=== PATIENT | female | born 1990 | race Two or more races ===

== ENCOUNTER 2018-07-15 22:40 | Inpatient (IN) | payer OTHER ==
[2018-07-15] MEDS ORDERED: NS 1,600 ML IV ONE (23:13)
[2018-07-15] MEDS ORDERED: HYDROmorphONE/DILAUDID 2 MG/ML INJ IVP ONE (23:14)
[2018-07-15] MEDS ORDERED: IBUPROFEN 200 MG TAB PO ONE (23:14)
[2018-07-15] MEDS ORDERED: ACETAMINOPHEN 500 MG TAB PO ONE (23:14)
--- NOTE | 2018-07-15 23:19 | EDPHY ---
H & P Stated Complaint: Received IM in R hip in [facility] 07/08/18 for viral illness c/o pain to r leg Time Seen by Provider: 07/15/18 23:02 HPI/ROS: HPI The patient presents with fever and right hip pain for the last 1 day. The patient was visiting [facility] at the beginning of the year and developed fever, sore throat, nausea, abdominal pain. She went to see a doctor and was diagnosed with a viral illness. She was given 2 injections on July 08, 1 in her hand and 1 in her right hip buttock region. Within 2 days she was feeling much better and had no fever. She has been feeling well over the last several days. She has had only a mild sore throat. She today developed pain at the right hip injection site. She had had no pain in the area until today. The pain became progressively worse throughout the day so that was painful to flex her hip or walk. She then developed a fever this afternoon and has come in to the emergency department. REVIEW OF SYSTEMS 10 systems were reviewed and negative with the exception of the elements mentioned in the history of present illness. PMHx: Mild iron deficiency anemia Soc Hx: Lives in [place], from [facility] originally, here on a working visa PHYSICAL General Appearance: Alert, no distress Eyes: Pupils equal and round no pallor or injection ENT, Mouth: Mucous membranes moist Respiratory: There are no retractions, lungs are clear to auscultation Cardiovascular: Tachycardic rate and regular rhythm Gastrointestinal: Abdomen is soft and non-tender, no masses, bowel sounds normal Neurological: A&O, moves all extremities Skin: Warm and dry, right buttock with small area of erythema with diffuse tenderness laterally Musculoskeletal: Limited range of motion of right hip secondary to pain Extremities: symmetrical, full range of motion Psychiatric: Patient is oriented X 3, there is no agitation Source: Patient Exam Limitations: No limitations - Personal History LMP (Females 10-55): 8-14 Days Ago Current Tetanus Diphtheria and Acellular Pertussis (TDAP): Unsure - Medical/Surgical History Hx Asthma: No Hx Chronic Respiratory Disease: No Hx Diabetes: No Hx Cardiac Disease: No Hx Renal Disease: No Hx Cirrhosis: No Hx Alcoholism: No Hx HIV/AIDS: No Hx Splenectomy or Spleen Trauma: No Other PMH: Denies - Social History Smoking Status: Never smoked Constitutional: Initial Vital Signs Temperature (C) 37.9 C 07/15/18 22:46 Heart Rate 135 H 07/15/18 22:46 Respiratory Rate 18 07/15/18 22:46 Blood Pressure 137/96 H 07/15/18 22:46 O2 Sat (%) 97 07/15/18 22:46 O2 Delivery Mode Room Air Allergies/Adverse Reactions: No Known Allergies Allergy (Unverified 07/15/18 22:44) Home Medications: Medication Instructions Recorded Biotin 07/15/18 Iron 07/15/18 Medical Decision Making - Diagnostics Imaging: Discussed imaging studies w/ call center associate Radiologist, I viewed and interpreted images myself Differential Diagnosis: This is a 27-year-old healthy female who presents with fever and right hip pain for the last 1 day, status post IM injection of some sort of medication into her right buttock/hip 1 week ago for some sort of viral syndrome which presented with fever on sore throat, nausea while in [place]. Here, she is febrile, tachycardic, very tender over her right buttock and hip with small area of erythema. She has limited range of motion of her hip because of pain. Differential diagnosis includes myositis, abscess, cellulitis, septic hip. In the emergency department, patient received IV fluids, antipyretics, medication for pain. She had a leukocytosis. Other labs were normal including lactate and CK. Blood cultures were performed and she was given antibiotics. With IV fluids patient's heart rate remains slightly elevated in the 100s. CT scan of her pelvis was performed which did demonstrate cellulitis which is likely related to the injection site. I consulted with Dr. Mathis for admission to the hospitalist service and he saw the patient in the emergency department. - Data Points Laboratory Results: Laboratory Results 07/15/18 23:25 07/15/18 23:25 07/16/18 07/15/18 07/15/18 00:56 23:35 23:25 WBC RBC Hgb Hct MCV MCH MCHC RDW Plt Count MPV Neut % (Auto) Lymph % (Auto) Green % (Auto) Eos % (Auto) Baso % (Auto) Nucleat RBC Rel Count Absolute Neuts (auto) Absolute Lymphs (auto) Absolute Monos (auto) Absolute Eos (auto) Absolute Basos (auto) Absolute Nucleated RBC Immature Gran % Immature Gran # VBG Lactic Acid Sodium 136 mEq/L mEq/L (135-145) Potassium 4.1 mEq/L mEq/L (3.5-5.2) Chloride 103 mEq/L mEq/L (97-110) Carbon Dioxide 25 mEq/l mEq/l (22-31) Anion Gap 8 mEq/L mEq/L (6-14) BUN 8 mg/dL mg/dL (7-23) Creatinine 0.7 mg/dL mg/dL (0.6-1.0) Estimated GFR > 60 Glucose 132 mg/dL H mg/dL (70-100) Calcium 9.0 mg/dL mg/dL (8.5-10.4) Creatine Kinase 43 IU/L IU/L (0-156) Urine Color PALE YELLOW Urine Appearance CLEAR Urine pH 7.0 (5.0-7.5) Ur Specific [place] 1.003 (1.002-1.030) Urine Protein NEGATIVE (NEGATIVE) Urine Ketones NEGATIVE (NEGATIVE) Urine Blood NEGATIVE (NEGATIVE) Urine Nitrate NEGATIVE (NEGATIVE) Urine Bilirubin NEGATIVE (NEGATIVE) Urine Urobilinogen NEGATIVE EU EU (0.2-1.0) Ur Leukocyte Esterase NEGATIVE (NEGATIVE) Urine Glucose NEGATIVE (NEGATIVE) Nasal Influenza A PCR NEGATIVE FOR FLU A (NEGATIVE) Nasal Influenza B PCR NEGATIVE FOR FLU B (NEGATIVE) 07/15/18 07/15/18 23:25 23:25 WBC 10.52 10^3/uL H 10^3/uL (3.80-9.50) RBC 4.62 10^6/uL 10^6/uL (4.18-5.33) Hgb 10.5 g/dL L g/dL (12.6-16.3) Hct 33.4 % L % (38.0-47.0) MCV 72.3 fL L fL (81.5-99.8) MCH 22.7 pg L pg (27.9-34.1) MCHC 31.4 g/dL L g/dL (32.4-36.7) RDW 15.6 % H % (11.5-15.2) Plt Count 256 10^3/uL 10^3/uL (150-400) MPV 10.1 fL fL (8.7-11.7) Neut % (Auto) 75.8 % H % (39.3-74.2) Lymph % (Auto) 13.6 % L % (15.0-45.0) Green % (Auto) 9.2 % % (4.5-13.0) Eos % (Auto) 0.9 % % (0.6-7.6) Baso % (Auto) 0.1 % L % (0.3-1.7) Nucleat RBC Rel Count 0.0 % % (0.0-0.2) Absolute Neuts (auto) 7.98 10^3/uL H 10^3/uL (1.70-6.50) Absolute Lymphs (auto) 1.43 10^3/uL 10^3/uL (1.00-3.00) Absolute Monos (auto) 0.97 10^3/uL H 10^3/uL (0.30-0.80) Absolute Eos (auto) 0.09 10^3/uL 10^3/uL (0.03-0.40) Absolute Basos (auto) 0.01 10^3/uL L 10^3/uL (0.02-0.10) Absolute Nucleated RBC 0.00 10^3/uL 10^3/uL (0-0.01) Immature Gran % 0.4 % % (0.0-1.1) Immature Gran # 0.04 10^3/uL 10^3/uL (0.00-0.10) VBG Lactic Acid 1.3 mmol/L mmol/L (0.7-2.1) Sodium Potassium Chloride Carbon Dioxide Anion Gap BUN Creatinine Estimated GFR Glucose Calcium Creatine Kinase Urine Color Urine Appearance Urine pH Ur Specific [place] Urine Protein Urine Ketones Urine Blood Urine Nitrate Urine Bilirubin Urine Urobilinogen Ur Leukocyte Esterase Urine Glucose Nasal Influenza A PCR Nasal Influenza B PCR Medications Given: Discontinued Medications Acetaminophen (Tylenol) 1,000 mg PO EDNOW ONE Stop: 07/15/18 23:15 Last Admin: 07/15/18 23:30 Dose: 1,000 mg Hydromorphone HCl (Dilaudid) 0.5 mg IVP EDNOW ONE Stop: 07/15/18 23:15 Last Admin: 07/15/18 23:31 Dose: 0.5 mg Hydromorphone HCl (Dilaudid) 0.5 mg IVP EDNOW ONE Stop: 07/16/18 01:00 Last Admin: 07/16/18 01:34 Dose: 0.5 mg Sodium Chloride (Ns) 1,600 mls @ 3,200 mls/hr 30 ml/kg infuse over 30 min ( 1600 ml) IV EDNOW ONE PRN Reason: Protocol Stop: 07/15/18 23:42 Last Admin: 07/15/18 23:24 Dose: 1,600 mls Ceftriaxone Sodium/Dextrose (Rocephin 1 Gm (Premix)) 50 mls @ 100 mls/hr IV EDNOW ONE PRN Reason: Protocol Stop: 07/16/18 01:28 Last Admin: 07/16/18 01:38 Dose: 50 mls Sodium Chloride (Ns) 1,000 mls @ 0 mls/hr IV ONCE ONE PRN Reason: Wide Open Stop: 07/16/18 02:36 Last Admin: 07/16/18 03:36 Dose: 1,000 mls Ibuprofen (Motrin) 400 mg PO EDNOW ONE Stop: 07/15/18 23:15 Last Admin: 07/15/18 23:30 Dose: 400 mg Ondansetron HCl (Zofran) 4 mg IVP EDNOW ONE Stop: 07/16/18 01:40 Last Admin: 07/16/18 01:39 Dose: 4 mg Departure - Departure Disposition: [facility] Acute Clinical Impression: Cellulitis of buttock, right, Tachycardia Condition: Fair
[2018-07-15 23:36] LABS: PLATELET COUNT 256 10^3/uL (150-400)
[2018-07-15 23:48] LABS: CREATINE KINASE 43 IU/L (0-156)
[2018-07-16] MEDS ORDERED: HYDROmorphONE/DILAUDID 2 MG/ML INJ IVP ONE (00:59)
[2018-07-16] MEDS ORDERED: IOPAMIDOL (ISOVUE 370) 100 ML BTL IV ONE (01:02)
[2018-07-16] MEDS ORDERED: ONDANSETRON 4 MG/2 ML VIAL ONE (01:35)
[2018-07-16] MEDS ORDERED: ONDANSETRON 4 MG/2 ML VIAL IVP ONE (01:39)
[2018-07-16] MEDS ORDERED: ONDANSETRON 4 MG/2 ML VIAL IVP PRN (01:52)
[2018-07-16] MEDS ORDERED: oxyCODONE IR 5 MG TAB PO PRN (01:52)
[2018-07-16] MEDS ORDERED: ONDANSETRON DISINTEGRATING 4 MG TAB PO PRN (01:52)
--- NOTE | 2018-07-16 02:31 | PDGENHP ---
History and Physical - Chief Complaint Hip pain - History of Present Illness 27 yo F w/ hx of QUAN presents with R hip/buttock pain. The patient had an upper respiratory infection about one week ago and was seen by a doctor in [place]. The patient tells me she received two injections, one in her arm and one in her R hip/buttock. She started to feel better but today began to note pain in the area. The pain progressed throughout the day and then she began to feel feverish as well so she came to the ED for evaluation. In the ED she is tachycardic and has inflammation on exam. CT scan consistent with cellulitis, no abscess. Patient is being admitted for management of this. Case discussed with ED physician Dr. Fernandez; records reviewed and summarized above. History Information - Allergies/Home Medication List Allergies/Adverse Reactions: No Known Allergies Allergy (Unverified 07/15/18 22:44) Home Medications: Biotin 07/15/18 [Last Taken Unknown] Iron 07/15/18 [Last Taken Unknown] I have personally reviewed and updated: family history, medical history - Past Medical History Additional medical history: Iron deficiency anemia - Surgical History Reports: no pertinent surgical hx - Family History Positive for: diabetes type II, hypertension - Social History Smoking Status: Never smoked Review of Systems Review of Systems: ROS: 10pt was reviewed & negative except for what was stated in HPI & below Physical Exam Physical Exam: Temp Pulse Resp BP Pulse Ox 37.3 C 100 16 113/69 92 07/16/18 02:27 07/16/18 01:39 07/16/18 01:39 07/16/18 01:39 07/16/18 01:39 Constitutional: appears nourished, uncomfortable Eyes: PERRL, EOMI Ears, Nose, Mouth, Throat: moist mucous membranes, no oral mucosal ulcers Cardiovascular: no murmur, rub, or gallop, tachycardia Respiratory: no respiratory distress, clear to auscultation Gastrointestinal: normoactive bowel sounds, soft, non-tender abdomen Skin: warm, other (Inflammation and tenderness of area on lateral R buttock) Musculoskeletal: full muscle strength, muscular tenderness Neurologic: AAOx3, sensation intact bilaterally Psychiatric: interacting appropriately, not anxious Lab Data & Imaging Review 07/15/18 23:25 07/15/18 23:25 WBC 10.52 10^3/uL (3.80-9.50) H 07/15/18 23:25 RBC 4.62 10^6/uL (4.18-5.33) 07/15/18 23:25 Hgb 10.5 g/dL (12.6-16.3) L 07/15/18 23:25 Hct 33.4 % (38.0-47.0) L 07/15/18 23:25 MCV 72.3 fL (81.5-99.8) L 07/15/18 23:25 MCH 22.7 pg (27.9-34.1) L 07/15/18 23: MCHC 31.4 g/dL (32.4-36.7) L 07/15/18: RDW 15.6 % (11.5-15.2) H 07/15/18 23: Plt Count 256 10^3/uL (150-400) 07/15/18 23: MPV 10.1 fL (8.7-11.7) 07/15/18 23: Neut % (Auto) 75.8 % (39.3-74.2) H 07/15/18 23: Lymph % (Auto) 13.6 % (15.0-45.0) L 07/15/18 23: [place] % (Auto) 9.2 % (4.5-13.0) 07/15/18 23: Eos % (Auto) 0.9 % (0.6-7.6) 07/15/18: Baso % (Auto) 0.1 % (0.3-1.7) L 07/15/18: Nucleat RBC Rel Count 0.0 % (0.0-0.2) 07/15/18: Absolute Neuts (auto) 7.98 10^3/uL (1.70-6.50) H 07/15/18 23: Absolute Lymphs (auto) 1.43 10^3/uL (1.00-3.00) 07/15/18 23: Absolute Monos (auto) 0.97 10^3/uL (0.30-0.80) H 07/15/18 23:25 Absolute Eos (auto) 0.09 10^3/uL (0.03-0.40) 07/15/18 23:25 Absolute Basos (auto) 0.01 10^3/uL (0.02-0.10) L 07/15/18 23:25 Absolute Nucleated RBC 0.00 10^3/uL (0-0.01) 07/15/18 23:25 Immature Gran % 0.4 % (0.0-1.1) 07/15/18 23:25 Immature Gran # 0.04 10^3/uL (0.00-0.10) 07/15/18 23:25 VBG Lactic Acid 1.3 mmol/L (0.7-2.1) 07/15/18 23:25 Sodium 136 mEq/L (135-145) 07/15/18 23:25 Potassium 4.1 mEq/L (3.5-5.2) 07/15/18 23:25 Chloride 103 mEq/L (97-110) 07/15/18 23:25 Carbon Dioxide 25 mEq/l (22-31) 07/15/18 23:25 Anion Gap 8 mEq/L (6-14) 07/15/18 23:25 BUN 8 mg/dL (7-23) 07/15/18 23:25 Creatinine 0.7 mg/dL (0.6-1.0) 07/15/18 23:25 Estimated GFR > 60 07/15/18 23:25 Glucose 132 mg/dL (70-100) H 07/15/18 23:25 Calcium 9.0 mg/dL (8.5-10.4) 07/15/18 23:25 Creatine Kinase 43 IU/L (0-156) 07/15/18 23:25 Urine Color PALE YELLOW 07/16/18 00:56 Urine Appearance CLEAR 07/16/18 00:56 Urine pH 7.0 (5.0-7.5) 07/16/18 00:56 Ur Specific [place] 1.003 (1.002-1.030) 07/16/18 00:56 Urine Protein NEGATIVE (NEGATIVE) 07/16/18 00:56 Urine Ketones NEGATIVE (NEGATIVE) 07/16/18 00:56 Urine Blood NEGATIVE (NEGATIVE) 07/16/18 00:56 Urine Nitrate NEGATIVE (NEGATIVE) 07/16/18 00:56 Urine Bilirubin NEGATIVE (NEGATIVE) 07/16/18 00:56 Urine Urobilinogen NEGATIVE EU (0.2-1.0) 07/16/18 00:56 Ur Leukocyte Esterase NEGATIVE (NEGATIVE) 07/16/18 00:56 Urine Glucose NEGATIVE (NEGATIVE) 07/16/18 00:56 Nasal Influenza A PCR NEGATIVE FOR FLU A (NEGATIVE) 07/15/18 23:35 Nasal Influenza B PCR NEGATIVE FOR FLU B (NEGATIVE) 07/15/18 23:35 Imaging Review: CT Pelvis prelim: stranding sq fat, no abcess, no foreign body Assessment & Plan Assessment: 27 yo F presents with likely cellulitis of R buttock. Plan: 1. R buttock cellulitis - This developed a few week after an injection to the site in [place]. It is unclear what medication was injected. It is also possible that this is a delayed reaction to whatever was injected at that site, but less likely. CT (personally reviewed/interpreted) without evidence of underlying abscess). - Admit for observation - Cefazolin 2 g IV q8h - Blood cultures pending - Pain control - Continue IVF noting tachycardia 2. Iron deficiency anemia - Patient is on outpatient, oral iron supplementation. - Continue oral iron Diet - Regular Code - Full Ppx - Low risk, ambulate TID Dispo - Admit under observation status
[2018-07-16] MEDS ORDERED: NS 1,000 ML IV ONE (02:35)
[2018-07-16 04:58] LABS: PLATELET COUNT 220 10^3/uL (150-400)
[2018-07-16] MEDS: ceFAZolin 2 GM/DEXTROSE 100 ML IV SCH ×3 (06:14→21:52)
[2018-07-16] MEDS ORDERED: NS 1,000 ML IV SCH (10:00)
--- NOTE | 2018-07-16 11:59 | HOSPPROG ---
Hospitalist Progress Note Assessment/Plan: 27 yo F presents admitted with cellulitis of R buttock. 1. R buttock cellulitis - This developed a few week after an injection to the site in [place]. It is unclear what medication was injected. It is also possible that this is a delayed reaction to whatever was injected at that site, but less likely. CT (personally reviewed/interpreted) without evidence of underlying abscess). - Cefazolin 2 g IV q8h - Blood cultures pending - Pain control - Provide additional IVF 2. Iron deficiency anemia - Patient is on outpatient, oral iron supplementation. - Continue oral iron 3. Dehydration, improving 4. Fever, none since admission Diet - Regular Code - Full Ppx - Low risk, ambulate TID Plan: She need additional IVF and Abx. Will reevaluate tomorrow. CT: no e/o abscess. c/w cellulitis Subjective: no cp or sob. no n/v. still with righ hip swelling and pain Objective: Vital Signs Temp Pulse Resp BP Pulse Ox 37.0 C 70 16 97/58 L 100 07/16/18 08:42 07/16/18 08:42 07/16/18 08:42 07/16/18 08:42 07/16/18 08:42 Laboratory Results 07/16/18 04:10 07/16/18 04:10 07/15/18 07/16/18 07/17/18 05:59 05:59 05:59 Intake Total 3100 Balance 3100 - Physical Exam Constitutional: no apparent distress Eyes: PERRL, EOMI Ears, Nose, Mouth, Throat: moist mucous membranes, hearing normal Cardiovascular: regular rate and rhythym, No edema Respiratory: no respiratory distress, no rales or rhonchi Gastrointestinal: normoactive bowel sounds Skin: other (right hip with mild erythema and small induration) Neurologic: AAOx3 Psychiatric: interacting appropriately Lymph, Heme, Immunologic: No petechiae ICD10 Worksheet Patient Problems: Problems Problem Status Onset Cellulitis of buttock, right Acute Tachycardia Acute
--- NOTE | 2018-07-16 12:15 | ASMTCMCOM ---
CM Note CM Note Notes: Pt is a 27 y/o female admitted for hip pain. Pt will most likely d/c independent when medically stable. No therapies ordered at this time. Pt has supportive and helpful roommates. CM available for changes. Plan: Independent Date Signed: 07/16/2018 12:14 PM Electronically Signed By:SPENCER Yancey
[2018-07-16] MEDS: ACETAMINOPHEN 325 MG TAB PO PRN (14:41)
[2018-07-16] MEDS ORDERED: PROMETHAZINE HCL 25 MG/ML INJ IVP ONE (15:15)
[2018-07-16] MEDS: HYDROmorphONE/DILAUDID 1 MG/ML INJ IVP PRN (17:04)
[2018-07-17] MEDS: ACETAMINOPHEN 325 MG TAB PO PRN ×2 (02:39→16:04)
[2018-07-17] MEDS: HYDROmorphONE/DILAUDID 1 MG/ML INJ IVP PRN (02:40)
[2018-07-17 06:02] LABS: PLATELET COUNT 223 10^3/uL (150-400)
[2018-07-17] MEDS: ceFAZolin 2 GM/DEXTROSE 100 ML IV SCH ×3 (06:28→21:42)
--- NOTE | 2018-07-17 11:43 | HOSPPROG ---
Hospitalist Progress Note Assessment/Plan: 27 yo F presents admitted with cellulitis of R buttock. Pelvic CT on admission showed cellulitis changes and no abscess. On exam yesterday 07/16, she had minimal induration. Today swelling and induration has increased. She has spiked multiple fevers. VS are stable. She is having good uop. CRP is up. PC is unremarkable. BCX NGTD and Leukocytosis has resolved. 1. R buttock cellulitis - This developed a few week after an injection to the site in [place]. It is unclear what medication was injected. It is also possible that this is a delayed reaction to whatever was injected at that site, but less likely. CT (personally reviewed/interpreted) without evidence of underlying abscess). - Cefazolin 2 g IV q8h - Blood cultures pending - Pain control 2. Iron deficiency anemia - Patient is on outpatient, oral iron supplementation. - Continue oral iron 3. Dehydration, resolved 4. Fever Diet - Regular Code - Full Ppx - Low risk, ambulate TID Plan: -cont Cefazolin -She likely need I&D with cultures. Surgery will consult -I've ordered an US -I did d/w ID who is not formally consulted. They agree with surgical eval and recommend cont Cefazolin for now until cultures are available and/or if she becomes hemodynamically compromised. -cont inpatient CT: no e/o abscess. c/w cellulitis Subjective: no cp or sob. +Fever. increased hip swelling Objective: Vital Signs Temp Pulse Resp BP Pulse Ox 36.9 C 85 16 92/51 L 97 07/17/18 08:00 07/17/18 08:00 07/17/18 08:00 07/17/18 08:00 07/17/18 08:00 Laboratory Results 07/17/18 05:10 07/17/18 05:10 07/16/18 07/17/18 07/18/18 05:59 05:59 05:59 Intake Total 3100 1636 1075 Output Total 800 400 Balance 3100 836 675 - Physical Exam Constitutional: no apparent distress, not in pain Eyes: PERRL, EOMI Ears, Nose, Mouth, Throat: moist mucous membranes, hearing normal, ears appear normal Cardiovascular: regular rate and rhythym, No edema Respiratory: no respiratory distress, no rales or rhonchi, clear to auscultation Gastrointestinal: normoactive bowel sounds, soft, non-tender abdomen Skin: warm, other (+swelling and erythem on right hip/buttock. + induration. tender to palpation) Neurologic: AAOx3 Psychiatric: interacting appropriately, not anxious, not encephalopathic Lymph, Heme, Immunologic: No petechiae ICD10 Worksheet Patient Problems: Problems Problem Status Onset Cellulitis of buttock, right Acute Tachycardia Acute
--- NOTE | 2018-07-17 14:00 | PDMN ---
Medical Necessity Medical [place] [facility] [place]: ongoing cellulitis now with increased edema and induration of R buttock day two of IV ABX- - status changed to INPT for ongoing med nec care > 2 MN - cont IV abx , IV pain, IV antiemetics - surg. consult pending.
[2018-07-17] MEDS: VANCOMYCIN HCL/NORMAL SALINE 250 ML IV SCH (17:22)
[2018-07-18] MEDS: VANCOMYCIN HCL/NORMAL SALINE 250 ML IV SCH (04:52)
[2018-07-18] MEDS ORDERED: diphenhydrAMINE 50 MG CAP PO PRN (05:54)
[2018-07-18] MEDS: ceFAZolin 2 GM/DEXTROSE 100 ML IV SCH ×3 (06:18→22:10)
--- NOTE | 2018-07-18 13:49 | ASMTCMCOM ---
CM Note CM Note Notes: Patient plan of care reviewed in rounds. She has some cellulitis,, but no need for surgical I&D at this time. CM to follow for needs, Plan: Likely to dc to home independent with good social support. Date Signed: 07/18/2018 01:49 PM Electronically Signed By:Kathy Javed RN
--- NOTE | 2018-07-18 15:32 | HOSPPROG ---
Hospitalist Progress Note Assessment/Plan: Subjective Follow-up on suspected cellulitis of the right buttock. Patient states that she did some homework on the intramuscular injection she received and states that it was Zofran. She feels that her pain has gotten better since she has come into the hospital but that the redness seems to have gotten bigger. Vancomycin was added last evening and she you apparently reported itchiness of her neck after this was administered. No subjective fevers. I reviewed that her white blood cell count has decreased slightly. Objective Vitals as detailed below Exam General-awake alert conversant no acute distress Heart-regular rate and rhythm no murmurs Lungs-Clear to auscultation with normal respiratory effort Abdomen-soft nontender nondistended normal bowel sounds -no Jean catheter in place Extremities-no significant pitting edema or calf pain with palpation Skin-mild erythema around the right lateral buttock no purulent drainage appreciated. Labs as detailed below Assessment and plan Cellulitis-suspected of the right buttock area although a reaction to an intramuscular injection a is not excluded. I did review the ultrasound with her which did not show any focal fluid collection necessitating drainage rather it just showed subcutaneous edema. I recommend that we continue with cefazolin alone considering the possible reaction to vancomycin yesterday. I have ordered a nasal swab to culture for MRSA. Repeat CRP with morning labs. Anemia-microcytic. Obtain iron studies with morning labs. DVT prophylaxis-compression devices. Relatively low risk is ambulatory. Disposition-pending improvement of her rash. Objective: Vital Signs Temp Pulse Resp BP Pulse Ox 36.9 C 73 12 103/66 96 07/18/18 11:49 07/18/18 11:49 07/18/18 11:49 07/18/18 11:49 07/18/18 11:49 07/17/18 07/18/18 07/19/18 05:59 05:59 05:59 Intake Total 1000 150 Output Total 3200 1350 Balance -2200 -1200 ICD10 Worksheet Patient Problems: Problems Problem Status Onset Cellulitis of buttock, right Acute Tachycardia Acute
[2018-07-19] MEDS: ceFAZolin 2 GM/DEXTROSE 100 ML IV SCH (05:46)
[2018-07-19 06:25] LABS: PLATELET COUNT 258 10^3/uL (150-400)
[2018-07-19 09:15] VITALS: BP 109/63
--- NOTE | 2018-07-19 11:55 | ASMTLACE ---
[facility] Length of stay for Answers: 1 day current admission Acuity / Level of Answers: Yes Care: Did the patient have an inpatient admission? # of Emergency department Answers: 1-2 visits in the last 6 months Score: 5 Date Signed: 07/19/2018 11:53 AM Electronically Signed By:Kathy Javed RN
--- NOTE | 2018-07-19 21:56 | GDS ---
PRIMARY CARE PROVIDER: None established locally. DISCHARGE DIAGNOSIS: Cellulitis of the right buttock versus adverse drug reaction. HISTORY OF PRESENT ILLNESS: The patient is a pleasant 27-year-old female with no major past medical history who [facility] after developing redness and swelli ng in the right buttock region. She stated that she had received an intramuscular injection in the r ight hip area while she was traveling in [place] one week prior. This injection was administered for a viral-like illness. She said one medication was an anti-inflammatory and the other was an anti-naus ea medication. She believes the intramuscular medication was Zofran. Patient was started on cefazol in and had minimal response. She did receive a dose of vancomycin but stated itchiness shortly after the injections, so this was stopped and she was continued on cefazolin alone. Fortunately, she did continue to improve. Her white blood cell count did normalize, and her CRP as well has trended downw no. Today on the day of discharge she reports that she is feeling much better and that she is not n oting any erythema in the right buttock region. HOSPITAL COURSE BY PROBLEM: 1. Cellulitis-likely cellulitis, although I would not rule out the possibility of a drug reaction to the intramuscular injection. Nonetheless, she is improved at this point in time with a white blood cell count normalizing, and she has been afebrile and CRP has trended downward as well. I recommend continuing antibiotic therapy for 5 additional days, and she will discharge with Keflex at 500 mg 4 t imes a day for 5 days. 2. Anemia. Patient has been on iron supplementation as an outpatient. I recommend that she continu e. DISPOSITION: She appears stable for discharge home. NOTABLE STUDIES: Pelvic CT showed probable cellulitis in the right buttock region. No evidence of a bscess or foreign body. Ultrasound, diffuse subcutaneous edema without loculated fluid collection to suggest abscess. DISCHARGE MEDICATIONS: Cephalexin 500 mg q.6 hours x5 additional days, ferrous sulfate 325 mg daily. DISCHARGE INSTRUCTIONS: I advised patient to seek medical attention if her rash does not completely resolve. My contact number was provided to her in case she needs any assistance. 35 minutes of time dedicated to discharge efforts. /[id number]/MODL
== END 2018-07-19 12:02 | disposition home or self-care (01) | DRG 603 ==
LOC: INTOOBSV 07-16 01:45 → F1N 07-16 02:27 → OBSVTOIN 07-17 13:36
PROVIDERS: ADMIT Student in an Organized Health Care Education/Training Program; ATTEND Student in an Organized Health Care Education/Training Program
DX: L03.317 Cellulitis of buttock (principal); T45.0X5A Adverse effect of antiallergic and antiemetic drugs, initial encounter; D50.9 Iron deficiency anemia, unspecified
CPT/HCPCS: 96374; G0378; J0690; J0696; J1170; J2405; J2550; J3370; Q9967